=== PATIENT | female | born 1965 | race Caucasian/White ===

== ENCOUNTER 2017-12-07 09:54 | Outpatient (CLI) | payer OTHER, SELFPAY ==
--- NOTE | 2017-12-07 09:51 | DI.RAD_ITS ---
SYMPTOM/DIAGNOSIS: INJURY, PAIN LEFT SHOULDER: No fracture or dislocation is seen. The AC joint appears intact. IMPRESSION: Negative left shoulder.
== END 2017-12-07 10:14 ==
PROVIDERS: PCP Nurse Practitioner Family; Visit Provider Physician Assistant
DX: M25.512 Pain in left shoulder (principal); S49.82XA Other specified injuries of left shoulder and upper arm, initial encounter
CPT/HCPCS: 73030

== ENCOUNTER 2018-04-14 09:33 | Outpatient (REF) | payer OTHER, SELFPAY ==
--- NOTE | 2018-04-14 09:15 | PAPFT_PTH ---
PATIENT: Mara Harrison LOC: [facility] U#:[id number] AGE/SX: 52/F ROOM: RE04/14/[address]: Mona Sunshine APRN : 1965 BED: DIS: 04/14/2018 SPEC #: [id number] RECD: 04/14/18 13:14 STATUS: ANNA REVladimir #: [id number] ELBERT: 04/14/18 09:[address]: Mona Sunshine DEPT: [facility] Cytology RECD BY: Ana Roy Tissues: 1 - CX/ENDOCX FOR PAP SMEARS Procedures: PAP THIN PREP/UVM Screening Comments: [id number]
== END 2018-04-14 09:53 ==
LOC: LBN 09:33
PROVIDERS: PCP Nurse Practitioner Family; Visit Provider Nurse Practitioner Family
DX: Z12.4 Encounter for screening for malignant neoplasm of cervix (principal)
CPT/HCPCS: 88142

== ENCOUNTER 2018-10-03 07:02 | Day surgery (SDC) | payer OTHER, SELFPAY ==
--- NOTE | 2018-10-03 07:02 | W.COLOREPORT ---
Date of service: 10/03/18 Time of Service: 08:21 Colonoscopy Report Date of procedure: 10/03/18 Pre-op diagnosis general: Colon Cancer Screening Post-op diagnosis procedure note: same Procedure: Colonoscopy Surgeon: Lola Ferrell Anesthesia proc note operative: other (General/ ASA 2/Genna Anderson, DARIA) Estimated blood loss (mL): 0 Pathology: none sent Complications: None Disposition: same day Indications: Mrs. Stearns is a pleasant 53 year old female who was seen in the office for a screening colonoscopy. This will be her first. She has no family history of colon cancer. Risks, benefits and complications have been reviewed. Complications include but are not limited to bleeding, pain, perforation, missed small lesion/polyp, sore throat, aspiration and adverse reaction to the medications. Questions were entertained and answered to their satisfaction and they wished to proceed. No guarantees were given or implied. Prep: Miralax/Dulcolax Procedure Start Time: 08:21 Procedure End Time: 08:37 Retraction Time: 10 minutes Findings: Normal colon Procedure Description: After informed consent was obtained the patient was taken to the procedure room and placed in a left decubitous position. Monitors were applied and a time out was done. The patients name, date of , procedure, allergies to medications and metal in their body was reviewed. The patient was then sedated. Once sedated and comfortable a rectal exam was done. External exam was normal. Internal exam revealed a normal sphincter tone and no palpable masses. The scope was then introduced and retro-flexed. No internal hemorrhoids were identified. The scope was then advanced to the cecum without difficulty. The TI and appendiceal orifice were identified. The prep was good. The scope was then slowly retracted over 10 minutes back into the rectum. There were no polyps and no diverticula. The scope was removed and the patient was woken up and taken back to Same day surgery in stable condition. The patient tolerated the procedure well and there were no immediate complications. Follow up: The patient should follow up in 10 years unless they develop changes in bowel habits or other new gastrointestinal complaints.
--- NOTE | 2018-10-03 07:04 | W.PM.DSUDISC ---
Discharge Plan Disposition Patient Disposition: HOME Condition: Good Discharge Details Reason For Visit: Colon Cancer Screening Attending Provider: Lola Ferrell Primary Care Provider: Mona Sunshine Home Meds and New Rx's Prescriptions: Continued magnesium oxide 400 mg capsule 400 mg PO DAILY RF: 0 riboflavin (vitamin B2) 400 mg tablet 400 mg PO DAILY RF: 0 naratriptan 2.5 mg tablet See Rx Instructions PO .COMPLEX MDD 5 mg Qty: 9 RF: 3 coenzyme Q10 [CoQ-10] 100 mg capsule 400 mg PO DAILY RF: 0 tumeric PO RF: 0 cbd oil PO RF: 0 acetaminophen [Tylenol] 325 MG tablet 325 mg PO PRN RF: 0 ascorbic acid (vitamin C) [Vitamin C] 500 MG tablet 500 mg PO DAILY RF: 0 vitamin B complex [B-Complex] 1 EACH tablet 1 ea PO DAILY RF: 0 naproxen 250 MG tablet 250 mg PO PRN RF: 0 cholecalciferol (vitamin D3) 5,000 unit tablet 1,000 unit PO DAILY RF: 0 Discharge Instructions Instructions: Colonoscopy (GEN) Additional Instructions: Findings: Normal colon Follow up: 10 years Please call if you develop: fevers >101.5 Nausea or Vomiting Abdominal pain that is not transient DAY SURGERY UNIT POST COLONOSCOPY INSTRUCTIONS 1. Because there will be medication in your system for the next 24 hours, you may feel a little sleepy. Your coordination will be affected. Therefore: a. Do not drive or operate dangerous equipment for 24 hours. b. Do not drink alcohol beverages for 24 hours (not even beer). c. Plan to go home and rest for the day. 2. Generally there are no restrictions on your activity after a day or so has gone by, but you may feel a bit fatigued for a few days. 3 After you arrive home you may have a light meal and return to a normal diet as you can tolerate it without feeling sick to your stomach. 4. After surgery, you may feel pain or discomfort. This should be only transient, but if it persists please contact your doctor. 5. If there are any questions regarding the findings of your procedure, please feel free to contact your doctor. 6. If you are unable to contact your doctor with a problem, contact the hospital at [phone]. 7. Continue all your regular medications unless directed otherwise. I understand the above instructions and have no questions. Signature of Patient or Responsible Adult Escort Date/Time Name of Responsible Adult Escort Signature of Nurse Date/Time Activity:: Activity as Tolerated Diet:: As Tolerated Discharge Orders Discharge Orders: Discharge Order (Routine); Ordered 10/03/18 Ordered By: Lola Ferrell DS: Diagnosis Discharge Diagnosis (1) Encounter for screening colonoscopy for [id number] patient: Status: Acute
[2018-10-03 07:21] VITALS: BP 116/72; PULSE 69; RESP 16; TEMP 35.9; O2SAT 100
[2018-10-03] MEDS: Lactated Ringers 1,000 ML 80 ML IV (07:44)
[2018-10-03] MEDS: PROPOFOL 500 MG/50 ML BTL 36.2 MG (08:15)
[2018-10-03] MEDS: Lidocaine 2% Pres-Free 5 ML VIAL (08:15)
[2018-10-03 09:05] VITALS: BP 88/51; PULSE 55; RESP 16; TEMP 36.6; O2SAT 100
== END 2018-10-03 09:30 | disposition home or self-care (01) ==
PROVIDERS: PCP Nurse Practitioner Family; Visit Provider Surgery
PROC: 0DJD8ZZ Inspection of Lower Intestinal Tract, Via Natural or Artificial Opening Endoscopic (ICD-10-PCS; CPT 45378; principal; 2018-10-03 08:15)
DX: Z12.11 Encounter for screening for malignant neoplasm of colon (principal)
CPT/HCPCS: 45378

== ENCOUNTER 2019-12-26 01:47 | Outpatient (CLI) | payer OTHER, SELFPAY ==
--- NOTE | 2019-12-26 06:45 | DI.MAMMO_ITS ---
EXAM: MG MAMMO SCREENING CLINICAL HISTORY: screening,Z12.39 TECHNIQUE: Bilateral full field digital CC and MLO mammographic images were obtained with 3D tomosyn thesis and utilizing computer aided detection (CAD). COMPARISON: Available for comparison. FINDINGS: Masses/Architectural Distortion: None seen. Microcalcifications: No suspicious pleomorphic-type are seen. Skin Thickening/Nipple Retraction: None. IMPRESSION: 1. No significant interval change with no specific features of malignancy noted. 2. Unless there is more urgent need, screening mammography is recommended, as per [employer] guidelines. BI-RADS Category 1 - Negative Breast Density - Category D - Extremely dense The mammogram demonstrates the patient's breast tissue is dense. Dense breast tissue is very common a nd is not abnormal but dense breast tissue can make it harder to find cancer on a mammogram. Also, de nse breast tissue may increase their breast cancer risk. This information about the result of the [facility] mogram report was provided to the patient to raise their awareness. Use this report when you speak wi th the patient about their risks for breast cancer, which includes their family history. At that time , you may recommend for more screening tests (Ultrasound or MRI) as they might be useful based on the ir risk. A negative radiographic report should not delay biopsy if a dominant or clinically suspicious mass is present. Up to ten percent of cancers are not identified on mammography. A negative report may reinforce clinical impression. Adenosis and dense breasts may obscure an underlying neoplasm. False positive reports average 6 to 10%. Patient will receive a letter notifying them of these results.
== END 2019-12-26 02:07 ==
PROVIDERS: PCP Nurse Practitioner Family; Visit Provider Nurse Practitioner Family
DX: Z12.31 Encounter for screening mammogram for malignant neoplasm of breast (principal)
CPT/HCPCS: 77063; 77067

== ENCOUNTER 2020-01-08 12:33 | Outpatient (REF) | payer OTHER, SELFPAY ==
--- NOTE | 2020-01-08 11:20 | SKI_PTH ---
PATIENT: Mara Harrison LOC: [facility] U#:[id number] AGE/SX: 54/F ROOM: RE01/08/[address]: HARPER Ibarra : 1965 BED: DIS: 01/08/2020 SPEC #: [id number] RECD: 01/08/20 13:02 STATUS: ANNA REQ #: [id number] ELBERT: 01/08/20 11:[address]: Dianne Echols DEPT: Surgical Specimen RECD BY: Ana Roy ENTERED: 01/08/20 13:03 SP TYPE: SKI DIOR DR: Unknown,Unknown Tissues: 1 - SKIN BIOPSY(SHAVE/PUNCH) Procedures: SKIN LEVEL 4 Comments: [id number] ([id number] [facility]#)
== END 2020-01-08 12:53 ==
LOC: LBN 12:33
PROVIDERS: Visit Provider Physical Therapy Assistant
DX: L82.0 Inflamed seborrheic keratosis (principal)
CPT/HCPCS: 88305

== ENCOUNTER 2020-01-31 16:47 | Outpatient (REF) | payer OTHER, SELFPAY ==
--- NOTE | 2020-01-31 16:00 | PAPFT_PTH ---
PATIENT: Mara Harrison LOC: [facility] U#:[id number] AGE/SX: 54/F ROOM: RE01/31/[address]: Mona Sunshine APRN : 1965 BED: DIS: 01/31/2020 SPEC #: [id number] RECD: 01/31/20 18:04 STATUS: ANNA REQ #: [id number] ELBERT: 01/31/20 16:[address]: Mona Sunshine DEPT: [facility] Cytology RECD BY: Ana Roy Tissues: 1 - CX/ENDOCX FOR PAP SMEARS Procedures: PAP THIN PREP/UVM Screening HPV DNA PROBE Comments: [id number]
== END 2020-01-31 17:07 ==
LOC: LBN 16:47
PROVIDERS: PCP Nurse Practitioner Family; Visit Provider Nurse Practitioner Family
DX: Z12.4 Encounter for screening for malignant neoplasm of cervix (principal); Z11.51 Encounter for screening for human papillomavirus (HPV)
CPT/HCPCS: 88142; 87624

== ENCOUNTER 2020-02-27 04:48 | Outpatient (CLI) | payer OTHER, SELFPAY ==
[2020-02-27 10:13] LABS: Calculated LDL 280 mg/dL (<100); Cholesterol 411 mg/dL (<200); HDL Cholesterol 125 mg/dL (40-60); Triglyceride 30 mg/dL (<150)
== END 2020-02-27 05:08 ==
PROVIDERS: PCP Nurse Practitioner Family; Visit Provider Nurse Practitioner Family
DX: E78.5 Hyperlipidemia, unspecified (principal)
CPT/HCPCS: 36415; 80061

== ENCOUNTER 2020-05-01 02:44 | Outpatient (CLI) | payer OTHER, SELFPAY ==
[2020-05-01 16:57] LABS: CRP, High Sensitivity <0.34 mg/L (See Note)
== END 2020-05-01 02:45 | disposition home or self-care (01) ==
LOC: LBO 02:44
PROVIDERS: PCP Nurse Practitioner Family; Visit Provider Nurse Practitioner Family
DX: E78.00 Pure hypercholesterolemia, unspecified (principal)
CPT/HCPCS: 36415; 83704; 86141; 82465; 83718; 84478

== ENCOUNTER 2020-07-23 02:41 | Outpatient (CLI) | payer OTHER, SELFPAY ==
[2020-07-29 14:56] LABS: Misc Referral (MAYO) See Comments
== END 2020-07-23 02:42 | disposition home or self-care (01) ==
LOC: LBO 02:41
PROVIDERS: PCP Nurse Practitioner Family; Visit Provider Nurse Practitioner Family
DX: E78.00 Pure hypercholesterolemia, unspecified (principal)
CPT/HCPCS: 36415; 83704

== ENCOUNTER 2022-11-05 11:45 | Outpatient (REF) | payer OTHER, SELFPAY ==
--- NOTE | 2022-11-05 11:00 | PAPFT_PTH ---
PATIENT: Mara Harrison LOC: [facility] U#:[id number] AGE/SX: 57/F ROOM: RE11/05/[address]: Gina Guo DO : 1965 BED: DIS: 11/05/2022 SPEC #: [id number] RECD: 11/05/22 13:05 STATUS: ANNA REQ #: [id number] ELBERT: 11/05/22 11:[address]: Gina Guo DEPT: [facility] Cytology RECD BY: Ana Roy Tissues: 1 - CX/ENDOCX FOR PAP SMEARS Procedures: PAP THIN PREP/UVM Screening HPV DNA PROBE Comments: [id number]
== END 2022-11-05 11:46 | disposition home or self-care (01) ==
LOC: LBN 11:45
PROVIDERS: Visit Provider Obstetrics & Gynecology
DX: Z12.4 Encounter for screening for malignant neoplasm of cervix (principal); Z11.51 Encounter for screening for human papillomavirus (HPV)
CPT/HCPCS: 88142; 87624

== ENCOUNTER → 2022-12-07 01:22 | Outpatient (CLI) | payer OTHER, SELFPAY ==
--- NOTE | 2022-12-07 11:59 | DI.MAMMO_ITS ---
Exam(s) MAMMO SCREENING EXAM: MAMMO SCREENING CLINICAL HISTORY: screening TECHNIQUE: Mammograms were interpreted according to the usual protocol including computer analysis w [employer] CAD system, tomosynthesis and C-view imaging. COMPARISON: 2019 FINDINGS: The breasts are composed of heterogeneously dense fibroglandular densities, Breast Density category C . No suspicious masses or suspicious microcalcifications are seen. No skin thickening or abnormal axillary lymph nodes are seen. There has been no significant change from prior exams. IMPRESSION: BI-RADS Category 1, Negative mammogram. Yearly screening mammography is recommended. Breast Density Category C, heterogeneously Dense. The mammogram demonstrates the patient's breast tissue is dense. Dense breast tissue is very common a nd is not abnormal but dense breast tissue can make it harder to find cancer on a mammogram. Also, de nse breast tissue may increase breast cancer risk. This information about the result of the mammogram report was provided to the patient to raise their awareness. Use this report when you speak with the patient about their risks for breast cancer, which includes their family history. At that time, you may recommend additional screening tests (Ultrasound or MRI) as they might be useful based on their r isk. A negative radiographic report should not delay biopsy if a dominant or clinically suspicious mass is present. Up to ten percent of cancers are not identified on mammography. A negative report may reinforce clinical impression. Adenosis and dense breasts may obscure an underlying neoplasm. False positive reports average 6 to 10%.
== END ==
PROVIDERS: Visit Provider Obstetrics & Gynecology
DX: Z12.31 Encounter for screening mammogram for malignant neoplasm of breast (principal)
CPT/HCPCS: 77063; 77067

== ENCOUNTER 2024-04-03 09:59 | Outpatient (REF) | payer SELFPAY ==
--- NOTE | 2024-04-03 09:40 | PAPFT_PTH ---
PATIENT: Mara Harrison LOC: [facility] U#:[id number] AGE/SX: 58/F ROOM: RE04/03/[address]: Gina Guo DO : 1965 BED: DIS: 04/03/2024 SPEC #: [id number] RECD: 04/03/24 13:06 STATUS: ANNA REQ #: [id number] ELBERT: 04/03/24 09:[address]: Gina Guo DEPT: [facility] Cytology RECD BY: Ana Roy ENTERED: 04/03/24 13:06 SP TYPE: PAPFT OTHR DR: Unknown,Unknown Tissues: 1 - CX/ENDOCX FOR PAP SMEARS Procedures: PAP THIN PREP/UVM Screening HPV DNA PROBE Comments: [id number] (HPV 16 & 18/45)
== END 2024-04-03 10:00 | disposition home or self-care (01) ==
LOC: LBN 09:59
PROVIDERS: Visit Provider Obstetrics & Gynecology
DX: R87.618 Other abnormal cytological findings on specimens from cervix uteri (principal); Z01.419 Encounter for gynecological examination (general) (routine) without abnormal findings; Z91.89 Other specified personal risk factors, not elsewhere classified; D68.51 Activated protein C resistance
CPT/HCPCS: 88142; 87624

== ENCOUNTER 2024-04-11 02:04 | Outpatient (CLI) | payer SELFPAY ==
--- NOTE | 2024-04-11 08:30 | DI.MAMMO_ITS ---
Exam(s) MAMMO SCREENING EXAM: MAMMO SCREENING CLINICAL HISTORY: screening TECHNIQUE: Mammograms were interpreted according to the usual protocol including computer analysis w [employer] CAD system, tomosynthesis and C-view imaging. COMPARISON: 2019 and 2022 FINDINGS: The breasts are composed of heterogeneously dense fibroglandular densities, Breast Density category C . No suspicious masses or suspicious microcalcifications are seen. No skin thickening or abnormal axillary lymph nodes are seen. There has been no significant change from prior exams. IMPRESSION: BI-RADS Category 1, Negative mammogram. Yearly screening mammography is recommended. Breast Density Category C, heterogeneously Dense. The mammogram demonstrates the patient's breast tissue is dense. Dense breast tissue is very common a nd is not abnormal but dense breast tissue can make it harder to find cancer on a mammogram. Also, de nse breast tissue may increase breast cancer risk. This information about the result of the mammogram report was provided to the patient to raise their awareness. Use this report when you speak with the patient about their risks for breast cancer, which includes their family history. At that time, you may recommend additional screening tests (Ultrasound or MRI) as they might be useful based on their r isk. A negative radiographic report should not delay biopsy if a dominant or clinically suspicious mass is present. Up to ten percent of cancers are not identified on mammography. A negative report may reinforce clinical impression. Adenosis and dense breasts may obscure an underlying neoplasm. False positive reports average 6 to 10%.
== END 2024-04-11 02:24 ==
PROVIDERS: PCP Neuromusculoskeletal Medicine & OMM; Visit Provider Obstetrics & Gynecology
DX: Z12.31 Encounter for screening mammogram for malignant neoplasm of breast (principal); R92.333 Mammographic heterogeneous density, bilateral breasts
CPT/HCPCS: 77063; 77067

== ENCOUNTER 2024-06-25 06:52 | Day surgery (SDC) | payer SELFPAY ==
--- NOTE | 2024-06-24 17:59 | W.ANESPRE ---
General Info Date of Service Date Performed: 06/25/24 Height: 5 ft 5 in Weight: 58.96 kg Body Mass Index (BMI): 21.6 Surgical Procedure: Operation Date: 06/25/24 08:20 Proposed Procedure Side Surgeon jimmy Brush MD Meds Allergies and Home Medications Allergies Allergy/AdvReac Type Severity Reaction Status Date / Time celiac AdvReac Mild bloating Uncoded 06/25/24 07:19 Home Medication ?Medication ?Instructions ?Recorded Tylenol 325 mg tablet 325 mg PO PRN 05/05/12 (acetaminophen) ascorbic acid (vitamin C) 500 mg 500 mg PO DAILY 07/25/14 tablet (Vitamin C) vitamin B complex (B-Complex 1 ea PO DAILY 07/25/14 tablet) naproxen 250 mg tablet 250 mg PO PRN 09/12/17 riboflavin (vitamin B2) 400 mg 400 mg PO DAILY 04/14/18 tablet cbd oil 40 mg PO DAILY 09/22/18 cholecalciferol (vitamin D3) 125 5,000 unit PO DAILY 09/22/18 mcg (5,000 unit) tablet coenzyme Q10 100 mg capsule 400 mg PO DAILY 09/22/18 (CoQ-10) magnesium glycinate 100 mg (as 400 mg PO DAILY 01/31/20 glycinate) tablet naratriptan 2.5 mg tablet See Rx Instructions PO .COMPLEX #9 01/28/21 tab-caps temazepam 15 mg capsule 15 mg PO QHS PRN 04/03/24 Current Visit Medications: Current Medications Generic Name Dose Route Start Last Admin Trade Name Freq PRN Reason Stop Dose Admin Ringer's Solution 1,000 mls @ 80 mls/hr 06/25/24 06:00 IV 07/22/24 23:59 INFUSION VALENTINO IV Miscellaneous Supplies 1 each 06/25/24 06:00 Iv Access IV 07/22/24 23:59 DIRECTED VALENTINO Sodium Chloride 0 ml 06/25/24 06:00 Normal Saline Flush 10 Ml Syr IV 07/22/24 23:59 PRN PRN Sodium Chloride 0 ml 06/25/24 06:00 Normal Saline 10 Ml Vial IJ 07/22/24 23:59 DIRECTED PRN Sterile Water 0 ml 06/25/24 06:00 Water,Injection,Sterile 10 Ml Vial IJ 07/22/24 23:59 DIRECTED PRN PFSH Active Problems Active Problems: Problem Status Onset Code SARS-CoV-2 positive Acute ~06/03/21 U07.1 Lateral epicondylitis of right elbow Acute M77.11 Tendinitis of left rotator cuff Acute M75.82 Migraine, unspecified, not intractable, without status migrainosus Chronic 12/30/15 G43.909 Menopausal symptoms Chronic 12/30/15 N95.1 Hypercholesterolemia Chronic 10/02/12 E78.00 Factor V Leiden mutation Chronic 12/07/12 D68.51 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 Celiac disease Chronic 07/25/14 K90.0 Medical History Medical History (Updated 06/24/24 @ 19:04 by Jf Brush MD) Kidney stone (~04/2019) Presumed by pt hx History of gastroscopy Surgical History Surgical History [place] teeth extracted History of esophagogastroduodenoscopy (EGD) History of colonoscopy Biopsy of breast (05/05/12) FINE NEEDLE BREAST BX Pia GUTIERREZ, Tobacco Smoking/Tobacco Use Status: Former Tobacco Use Passive smoking exposure: No Alcohol Alcohol Intake: current Alcohol intake frequency: a few times a month Substance Use Substance use: Daily Substance use type: does not use and marijuana Prental History History 2 Para 2 Hx # Term Pregnancies 1 Multiple births Hx # Pregnancies 1 Ectopic pregnancies AB induced Hx Number of Living Children 2 AB spontaneous Vital Signs and Lab Results Vital Signs Most Recent Vital Signs in EMR: Temp Pulse Resp BP Pulse Ox 36.4 C L 57 L 16 120/70 99 06/25/24 07:22 06/25/24 07:22 06/25/24 07:22 06/25/24 07:22 06/25/24 07:22 Lab Results Blood Type / Crossmatch: No Data to Display Complete Blood Count: No Data to Display Complete Metabolic Panel: No Data to Display Liver Function Panel: No Data to Display Coagulation Panel: No Data to Display Cardiac Panel: No Data to Display Arterial Blood Gas: No Data to Display Venous Blood Gas: No Data to Display Pancreas Panel: No Data to Display Thyroid Panel: No Data to Display Infectious Disease: No Data to Display Blood Cultures: No Data to Display Toxicology Panel: No Data to Display Anesthesia Assessment and Plan Anesthesia History Personal History: No History of Anesthesia Complications Family History: No Family History of Anesthesia Complications Exercise Tolerance Exercise Tolerance: Metabolic Equivalents>4 Pertinent Negatives Pertinent Negatives: No Symptoms of GERD, No Major Cardiovascular Symptoms or Complaints, No Major Pulmonary Symptoms or Complaints and No History of CVA/TIA Cardiac & Pulmonary Exam Cardiac Exam: Normal S1/S2 Heart Sounds Pulmonary Exam: Clear Bilateral Breath Sounds Implantable Cardiac Device Does patient have a Pacemaker or an ICD?: No Airway Exam Known Difficult Airway: No Mallampati Class: 2 Mouth Opening: Normal (> 3cm) Thyromental Distance: Greater than 3 cm Neck Range of Motion: Full ROM Neck Circumference: Normal Teeth Condition: Normal Dentition ASA Classification ASA Score: ASA 2 Emergency Case?: No NPO Status NPO Status: NPO Clears >2 hours, Solids >8 hours Anesthesia Plan Resuscitation Status: Full Code Anesthesia Technique: MAC Anesthesia Airway Planned: Natural Airway Monitors Used: Standard Monitors Preoperative Comments:: 59 yo female for colo. Sig PMHx: factor V Leiden, former smoker, occ EtOh. Previous Anes: - colo, prop, natural airway, no issues.
--- NOTE | 2024-06-24 19:03 | W.PM.DSUDISC ---
Date of service: 06/25/24 Discharge Plan Disposition Patient Disposition: Home Condition: Good Discharge Details Reason For Visit: screening colonoscopy Attending Provider: Jf Brush Primary Care Provider: Jai Lovett Home Meds and New Rx's Prescriptions: Continued riboflavin (vitamin B2) 400 mg tablet 400 mg PO DAILY coenzyme Q10 [CoQ-10] 100 mg capsule 400 mg PO DAILY cbd oil 40 mg PO DAILY magnesium glycinate 100 mg tablet 400 mg PO DAILY temazepam 15 mg capsule 15 mg PO QHS PRN acetaminophen [Tylenol] 325 MG tablet 325 mg PO PRN ascorbic acid (vitamin C) [Vitamin C] 500 MG tablet 500 mg PO DAILY vitamin B complex [B-Complex] 1 EACH tablet 1 ea PO DAILY naproxen 250 MG tablet 250 mg PO PRN cholecalciferol (vitamin D3) 5,000 unit tablet 5,000 unit PO DAILY Patient Comments: 09/12/17 Takes in winter. zn naratriptan 2.5 mg tablet See Rx Instructions PO .COMPLEX MDD 5 mg Qty: 9 3RF Dose Instruction: take 1 tab at onset of headache; if no relief may repeat 1 tab in 4hr; max = 2 tabs/24 hrs PO Rx Instructions: take 1 tab at onset of headache; if no relief may repeat 1 tab in 4hr; max = 2 tabs/24 hrs PO Discharge Instructions Additional Instructions: Mara, I hope you make a quick recovery from the procedure, that you feel great this afternoon. Everything went very smoothly. Your prep was excellent, and I could see everything fine. I did not see any signs of tumors, polyps, or anything at all out of the ordinary. As you know, with your family history, I recommend a 5-year interval for your next screening colonoscopy. Obviously, if you need anything or have any questions at all, please do not hesitate to ask. 1. If tolerated, consume a soft, low fiber diet for 1-2 days. 2[address] Do not drive, drink alcohol, operate machinery, make critical decisions, or do activities that require coordination or balance for 24 hours. 3. Because air was put into your colon during the procedure, expelling air from your rectum (passing gas or farting) is normal. 4. You may not have a bowel movement for 1-3 days because of the colonoscopy prep. This is normal. 5. Go directly to the emergency room if you notice any of the following: Develop chills (warm to touch), or if you have a thermometer and your temperature is above 101 Difficulty breathing or difficultly swallowing Persistent vomiting Severe abdominal pain, other than gas cramps Severe chest pain Black, tarry stools Any bleeding ? exceeding one tablespoon 6. Call your physician if the site where your intravenous was started becomes red, swollen, painful, and warm to touch. 7. Your physician has reviewed your pre-procedure medications. Please continue to take those medications as previously ordered. You will be given specific information/education regarding any changes to your medications before leaving. Activity:: Activity as Tolerated Diet:: As Tolerated Discharge Orders Discharge Orders: Discharge Order (Routine); Ordered 06/24/24 Ordered By: Jf Brush DS: Diagnosis Discharge Diagnosis (1) Encounter for screening colonoscopy: Status: Acute Asessment and Plan: Negative screening colonoscopy
--- NOTE | 2024-06-24 19:07 | COLE_ITS ---
Date of service: 06/25/24 Time of Service: 08:41 Colonoscopy Report Date of procedure: 06/25/24 Pre-op diagnosis general: screening colonoscopy Post-op diagnosis procedure note: other (Negative screening colonoscopy) Procedure: colonoscopy Surgeon: Jf Brush Anesthesia Type: General:No Airway Estimated blood loss (mL): 0 Pathology: none sent Complications: None Disposition: same day Indications: Mara is a 59 year old woman with a family history of rectal cancer. She needs a screening colonsocopy Prep: Miralax/Dulcolax Procedure Start Time: 08:10 Procedure End Time: 08:34 Retraction Time: 6 Findings: Negative screening colonoscopy Procedure Description: After the induction of anesthesia, and with the patient in left lateral decubitus position, I began by performing an external anorectal exam.? Perineum and skin were normal, as was the anal verge.? This appeared normal.? Next, I performed a digital rectal exam.? I did not appreciate any abnormal findings.? Next, I advanced a colonoscope into the rectal vault.? I performed retroflexion.? This appeared normal.? Using insufflation, I then advanced the colonoscope beyond the rectal folds and into the sigmoid colon before advancing towards the cecum.? The quality of the prep was excellent. There was some redundancy of the colon that required some external pressure to help navigate the hepatic flexure and get down into the cecum. Mara tolerated this well.? The scope was noted to be in the cecum by identification of the ileocecal valve and appendiceal orifice.? I then began withdrawing the colonoscope using repeated irrigation as necessary for full evaluation of the colonic mucosa. ?Once the scope was withdrawn to the level of the rectum, great care was taken to examine portions of the rectal folds.? I saw no signs of any tumors or polyps anywhere along the length of the colon. Finally, the scope was withdrawn and the patient was brought to the same-day surgery recovery unit as the anesthetic wore off. ?The findings and instructions were shared with the patient prior to discharge. [place] Bowel Prep [place] Bowel Prep Right Colon: 3 Left Colon: 3 Transverse Colon: 3 Total Score: 9
[2024-06-25 07:22] VITALS: BP 120/70; PULSE 57; RESP 16; TEMP 36.4; O2SAT 99
[2024-06-25] MEDS: Lactated Ringers 1,000 ML 80 ML IV (07:47)
[2024-06-25 08:40] VITALS: BP 98/68; PULSE 66; RESP 12; TEMP 36.5; O2SAT 97
[2024-06-25 09:08] VITALS: BP 98/69; PULSE 66; RESP 14; TEMP 36.6; O2SAT 98
--- NOTE | 2024-06-25 09:16 | W.ANESPOSTOP ---
Postoperative Evaluation Date, Time and Location Date Performed: 06/25/24 Time Performed: 09:08 Patient Location: Day Surgery Unit Vital Signs Most Recent Imported Vital Signs: Most Recent Vital Signs Temp Pulse Resp BP Pulse Ox 36.6 C 66 14 98/69 L 98 06/25/24 09:08 06/25/24 09:08 06/25/24 09:08 06/25/24 09:08 06/25/24 09:08 Pain Score Most Recent Pain Score: Most Recent Pain Score Pain Level 0 06/25/24 09:08 Assessment Mental Status: Awake (Alert & Oriented to Patient Baseline) Airway and Respiratory Function: Patent airway with normal (patient baseline) respiratory exam Cardiovascular Function: Hemodynamically Stable Hydration Status: Adequately Hydrated Nausea & Vomiting: No Nausea or Vomiting Pain: Pt. Denies Any Pain Peripheral Nerve Block: Patient did not receive a nerve block
[2024-06-25 11:25] VITALS: BMI 21.6
== END 2024-06-25 09:28 | disposition home or self-care (01) ==
LOC: SUR 06:52
PROVIDERS: PCP Neuromusculoskeletal Medicine & OMM; Visit Provider Surgery
PROC: 0DJD8ZZ Inspection of Lower Intestinal Tract, Via Natural or Artificial Opening Endoscopic (ICD-10-PCS; CPT 45378; principal; 2024-06-25 08:15)
DX: Z12.11 Encounter for screening for malignant neoplasm of colon (principal); Z80.8 Family history of malignant neoplasm of other organs or systems
CPT/HCPCS: 45378; J0131; J2405; J2704